=== PATIENT | female | born 1980 | race Caucasian/White ===

== ENCOUNTER → 2020-09-24 13:30 | Outpatient (CLI) | payer OTHER, SELFPAY ==
[2020-09-11 13:37] VITALS: BMI 40.2
--- NOTE | 2020-09-24 13:32 | BI_ITS ---
MAMMOGRAPHY - BILATERAL SCREENING REASON FOR EXAM: Female, 40 years old. Routine annual screening examination. PERTINENT HISTORY: TECHNIQUE: Digital bilateral breast ajith (3D mammographic acquisition) in the CC and MLO projections. 2-D mediolateral oblique (MLO) and craniocaudad (CC) views of both breasts were obtained. CAD: Full Field Digital Mammography with Computer Added Detection was performed. COMPARISON: None, baseline screening. FINDINGS: Breast Composition: Heterogeneously dense There are no dominant masses or suspicious calcifications. No other significant abnormalities are identified. BI/SCRN MAMM (CAD)W/AJITH BILAT IMPRESSION: Stable bilateral screening mammogram. Yearly follow-up mammogram recommended. (A) ASSESSMENT CATEGORY: BIRADS Category 1: Negative. A letter regarding these results will be sent to the patient by the facility within 30 days. Approximately 10% of breast cancers are not detected by mammography. A normal mammogram should not delay biopsy of a clinically suspicious abnormality. [id number] Electronically Signed: Arie Miller DO at 16:28 EDT Tel , Service support ,
== END ==
PROVIDERS: Referring Provider Nurse Practitioner Family; Visit Provider Nurse Practitioner Family
DX: Z12.31 Encounter for screening mammogram for malignant neoplasm of breast (principal)
CPT/HCPCS: 77063; 77067

== ENCOUNTER 2020-09-26 15:14 | Observation (INO) | payer OTHER, SELFPAY ==
[2020-06-14 16:10] VITALS: BMI 40.2
[2020-09-11 13:37] VITALS: BMI 40.2
--- NOTE | 2020-09-25 21:37 | PCM.HP.BLA ---
History and Physical Date of Admission: 09/26/20 HISTORY OF PRESENT ILLNESS 40 year old woman presents with complaints of bilateral macromastia as well as associated painful symptomatology of neck pain, thoracic back pain, bilateral shoulder pain from shoulder grooving from the weight of her breasts on her bra straps, and inframammary intertrigo for which she uses powders for relief. She denies any trauma to her breasts. Denies any nipple discharge. She has been seeing a Chiropractor for her neck and thoracic back pain without much relief in her painful symptomatology. She has received medical approval for the breast reduction surgery from her insurance company. The surgery is scheduled for September 26, 2020. She had a mammogram on 09/24/20. It showed breast Composition is heterogeneously dense. There are no dominant masses or suspicious calcifications. No other significant abnormalities are identified. PAST MEDICAL HISTORY Back problem Chronic neck pain Chronic thoracic back pain Headache Intertrigo Macromastia Shoulder pain PAST SURGICAL HISTORY delivery ALLERGIES No Known Allergies MEDICATIONS multivitamin FAMILY HISTORY Other - Cancer SOCIAL HISTORY Smoking Status: Never smoker alcohol intake: never substance use type: does not use REVIEW OF SYSTEMS General - Denies fever, weight loss and fatigue. Eyes - Denies cataracts and glaucoma. ENT - Denies nasal congestion and sore throat. Endocrine - Denies excessive thirst and urination. Skin - Denies suspicious lesions and skin cancer. Has inframammary intertrigo for which she uses powders for relief. Musculoskeletal - Denies joint pain, weakness of muscles and joints, and arthritis. Has joint stiffness and neck pain and back pain. Her neck and back pain involve cervical and thoracic area. Has bilateral shoulder pain from shoulder grooving from the weight of her breasts on her bra straps. Neuro - Has headaches. Cardiovascular - Denies chest pain, fatigue, and shortness of breath with exertion. Psych - Denies anxiety and depression. Respiratory - Denies shortness of breath and chronic cough. Gastrointestinal - Denies nausea, vomiting, diarrhea, and constipation. Hematologic - Denies abnormal bruising and bleeding. Genitourinary - Denies hematuria and urinary frequency. PHYSICAL EXAMINATION General - Alert and oriented. Patient's bra size is 42 DD. HEENT - PERRL. EOMI. Throat is clear. Neck - Supple. No bony tenderness. There is some pericervical soft tissue tenderness. Lungs- Clear to auscultation. Heart - Regular rate and rhythm. Breasts - Patient has bilateral macromastia. No breast masses palpable. No axillary adenopathy noted. Left breast is slightly larger than her right breast. Distance from midclavicular line on the left to the nipple is 41 cm and from the nipple to the inframammary fold is 18 cm. Distance from midclavicular line on the right to the nipple is 39 cm and from nipple to the inframammary fold is 19 cm. Nipple areolar complex diameter is 8 cm bilaterally. No active inframammary intertrigo noted at this time. Abdomen - Soft and non distended. Back - No bony tenderness noted. There is perivertebral soft tissue tenderness in the upper thoracic area. Extremities - FROM. No axillary adenopathy. Radial pulses are palpable. There is some bilateral shoulder tenderness with shoulder grooving from the weight of her breasts on her bra straps. Neuro - CN II-XII grossly intact. Psych - Normal and mood and affect. ASSESSMENT 1. Bilateral macromastia. 2. Neck pain. 3. Thoracic back pain. 4. Bilateral shoulder pain from shoulder grooving from the weight of the breasts on her bra straps. 5. Inframammary intertrigo. PLAN Discussed with the patient the procedure of breast reduction mammoplasty. I feel this procedure would be beneficial in this patient as it would help relieve her painful symptomatology. Patient recently had a mammogram on 09/24/20. It showed breast Composition is heterogeneously dense. There are no dominant masses or suspicious calcifications. No other significant abnormalities are identified. Postoperatively, she would get a breast reduction baseline mammogram at some point. I would remove approximately 750 g of breast tissue per side. We will send the tissue to pathology for analysis to rule out carcinoma. Discussed with patient the extent of scarring for this procedure. The biggest risk for wound healing problems is the T-zone area. Usually wound care and sometimes antibiotics are necessary for healing in this area. She would have drains in for a few days depending on the amount of tissue that is removed. She will be on antibiotics until the drains are removed. In general, the final breast size will range from a full C to a low D cup. She voices understanding. Surgery will be done under general anesthesia with a surgical observation overnight stay in the hospital. A letter to her insurance carrier was sent and we have received medical approval for the surgery that is scheduled for September 26, 2020. Patient was informed of the risks and complications of the procedure including alternatives to surgery. These were discussed with her personally. She voices understanding and wishes to proceed. Some of the risks and complications were included in a form from the [employer]. She had last minute questions that were answered personally and to her satisfaction. We discussed the current risks associated with COVID-19. While it is understood that there is a community spread of COVID-19, the risk of verito COVID-19 while at [facility] ([facility]) is very low; however, the risk cannot be completely mitigated because of the community spread of the disease. We discussed in detail the risk of exposure to and/or potential harm posed by the COVID-19 virus with having a surgery/procedure at this time versus the risk of delaying the surgery/procedure. It is not possible to know either the risk of delaying the surgery or procedure or chance of getting an infection with perfect accuracy, but a joint decision was made to proceed at this time with the scheduled surgery/procedure as indicated on the consent form. Patient was notified that we will need to comply with any screening or testing [facility] wishes to perform or that surgery may be delayed for any positive results.
[2020-09-26] VITALS (14 sets, daily range): BP systolic 95–141; BP diastolic 48–81; PULSE 73–102; RESP 16–18; TEMP 36.2–37.3; O2SAT 96–100; BMI 43.5
--- NOTE | 2020-09-26 | BR_PTH ---
PATIENT: HAMLET SHEFFIELD LOC: [facility]3 U#:[id number] AGE/SX: 40/F [place] [facility] [place]/26/[address]: Dr. Faboi Mcclelland MD : 1980 BED: 1 DIS: 09/27/2020 SPEC #: [id number] RECD: 09/26/20 14:41 STATUS: KARAN SANGITA #: [id number] ROBINA: 09/26/20 00:[address]: Fabio Mcclelland DEPT: SURGICAL PATHOLOGY RECD BY: Gavin Petersen ENTERED: 09/27/20 08:16 SP TYPE: MAMOPLASTY OTHR DR: Amira Primary Care Phys Tissues: A - Right breast, NOS B - Left breast, NOS Procedures: Surgery Specimen Level IV HEADER OPERATION: ERAS, breast reduction mammoplasty PRE-OP DIAGNOSIS: Bilateral macromastia, neck pain, thoracic back pain, bilateral shoulder pain, inframammary intertrigo TISSUE SUBMITTED: A ? Right breast tissue, B ? Left breast tissue MICROSCOPIC DIAGNOSIS A. Right breast tissue, breast reduction mammoplasty: Fragments of benign breast tissue (1076 gm). Skin, no pathologic diagnosis. B. Left breast tissue, breast reduction mammoplasty: Fragments of benign breast tissue (1445 gm). Skin, no pathologic diagnosis. RAPHAEL:rosette 09/28/2020 MICROSCOPIC DESCRIPTION Slides are reviewed. GROSS DESCRIPTION A - Received in fixative is one container labeled with the patient's name and designated right breast tissue. The specimen consists of multiple fragments of fibroadipose tissue with a few of the pieces showing sparrow-white skin and detached fragments of sparrow-white skin measuring in aggregate 28 x 27 x 7 cm and weighing 1076 gm. Sections reveal sparrow-yellow adipose cut surfaces mixed with scant fibrous areas. No mass lesion is identified. Detail Maker And Fitter sections are submitted in six cassettes. Cassette 6 also contains the skin piece. B - Received in fixative is one container labeled with the patient's name and designated left breast tissue. The specimen consists of multiple fragments of fibroadipose tissue with a few of the pieces showing sparrow-white skin and detached fragments of sparrow-white skin measuring in aggregate 30 x 28 x 8 cm and weighing 1445 gm. Sections reveal sparrow-yellow adipose cut surfaces mixed with scant fibrous areas. No mass lesion is identified. Detail Maker And Fitter sections are submitted in six cassettes. Cassette 6 also contains the skin piece. / RAPHAEL:rosette 09/27/20 TC:5 CPT: 15161 x2
[2020-09-26] MEDS: Lactated Ringers 1,000 ML 40 ML IV (07:35)
[2020-09-26 07:45] LABS: Internal QC Validated? YES +Cl - CLEAR BKGD; Pregnancy, Urine Negative Negative
[2020-09-26] MEDS: Gabapentin 600 MG Tablet PO (07:49)
[2020-09-26] MEDS: Acetaminophen 500 MG Tablet 1000 MG PO ×2 (07:49→19:43)
[2020-09-26] MEDS: Scopolamine 1mg/72hr Patch 1 PATCH TD (07:50)
[2020-09-26 07:57] LABS: Magnesium 2.1 mg/dL (1.6-2.6)
[2020-09-26] MEDS: Cefazolin 2 GM in 0.9% Normal Saline 100 ML IV (09:10)
[2020-09-26] MEDS: Lidocaine 1% /Epi 1:100 (20ml) 20 ML Vial (09:45)
[2020-09-26] MEDS: Lactated Ringers 1,000 ML 60 ML IV ×4 (09:46→19:45)
--- NOTE | 2020-09-26 14:55 | OP.PCM_ITS ---
Problems Associated Problem List Diagnoses (1) Macromastia: (2) Chronic neck pain: (3) Chronic thoracic back pain: (4) Shoulder pain: (5) Intertrigo: Report of Operation Date of Procedure: 09/26/20 Pre-Operative Diagnosis: 1. Bilateral macromastia. 2. Neck pain. 3. Thoracic back pain. 4. Bilateral shoulder pain from shoulder grooving from the weight of the breasts on her bra straps. 5. Inframammary intertrigo. Post-Operative Diagnosis: Same. Surgery/Procedure Performed:: Bilateral breast reduction mammaplasty. Description of Surgical Findings:: 40 year old woman presents with complaints of bilateral macromastia as well as associated painful symptomatology of neck pain, thoracic back pain, bilateral shoulder pain from shoulder grooving from the weight of her breasts on her bra straps, and inframammary intertrigo for which she uses powders for relief. She denies any trauma to her breasts. Denies any nipple discharge. She has been seeing a Chiropractor for her neck and thoracic back pain without much relief in her painful symptomatology. She has received medical approval for the breast reduction surgery from her insurance company. The surgery is scheduled for September 26, 2020. She had a mammogram on 09/24/20. It showed breast Composition is heterogeneously dense. There are no dominant masses or suspicious calcifications. No other significant abnormalities are identified. Patient was informed of the risks and complications of the procedure including alternatives to surgery. These were discussed with the patient personally. Patient voices understanding and wishes to proceed. Some of the risks and complications were included in a form from the [employer] [place] [employer]. IV Fluids - 3000 ml. Urine Output - 1100 ml. Tissue removed from the left breast - 1402 grams. Tissue removed from the right breast - 1038 grams. I used AmnioFix Placental Connective Tissue Graft, (2 x 12 cm in each breast at [facility]). Catalog Number - [id number]. Lot Number - [id number]. Expiration - April 23, 2025, (left breast Tzone). Catalog Number - [id number]. Lot Number - [id number]. Expiration - April 23, 2025, (right breast Tzone). I used Preeti absorbable hemostat, (I used 4 vials, 2 in each breast). Reference Number - [id number]. Lot Number - [id number]. Expiration - June 20, 2025. Surgeon: Fabio Mcclelland contracts attorney: Ladarius Coleman contracts attorney: Dimitri Bean Type of Anesthesia: General Specimen's removed: 1. Left breast tissue to Pathology. 2. Right breast tissue to Pathology. Drains: Juan x2 (one in each breast). Estimated Blood Loss (mL): 250. Fluids Replaced: 4100 ml (IV Fluids 3000 ml, Urine Output 1100 ml). Description of Procedure: In the preop area, the patient was placed in the sitting position and preoperative markings were made. The sternum midline was marked down to the umbilicus. The inframammary folds were marked bilaterally. The midclavicular line was then marked down to the nipple, then from the nipple to the inframammary fold. The inframammary fold was then superimposed on the midclavicular line and I made a point 1 cm below that to be the new position of the nipple-areolar complex. 7 cm lines were then drawn divergent from that point to encompass the nipple-areolar complex. The distance between the divergent lines was 10 cm. The patient was then placed in the supine position and taken to the operating room and placed under general anesthesia and her breasts were prepped and draped in usual fashion. Ioban draping was also used. SCDs were placed for DVT prophylaxis. Perioperative antibiotics were given intravenously. A Hutchinson catheter was also placed. I then lauren straight lines down from the lines drawn divergent around the nipple-areolar complex down to the inframammary fold. The width of the pedicle is 10 cm. I then used a 45 mm circular template for a new size of the nipple-areolar complex. The central markings were infiltrated with Xylocaine and epinephrine. The central skin was then deepithelialized. I started on the left side first and then went to the right side. I then mobilized medial and lateral breast flaps at the level of Joan's fascia down to about 1-2 cm from the chest wall. This was met in the midline of the breast with dissection at the level of Joan's fascia down to about 1-2 cm from the chest wall. Once the central breast mound pedicle was from the skin envelope, the reduction was then begun. Most of the tissue was removed from the superior aspect of the breast and the lateral aspect of the breast. I then sutured the leading edge of the medial and lateral breast flaps to the midline of the inframammary fold with 2-0 Vicryl suture. The vertical incision was approximated using surgical clips. The excess tissue from the medial and lateral breast flaps were excised and the horizontal incision was approximated using surgical clips. The patient was then placed in a sitting position. Using a vertical limb length of 5 cm, I lauren the new position of the new nipple-areolar complexes on both breasts. They were in good position on the central aspect of the breast mound. Good symmetry was noted between the left breast and the right breast. Good shape and contour and projection was noted and appeared clinically to be a full C cup. The patient was then placed back in the supine position and the surgical clips were removed. The breast wounds were then irrigated with Irrisept 0.05% Chlorhexidine solution which was followed by saline irrigation. Hemostasis was obtained using electrocautery. The tissue removed from the left breast was 1402 grams. The tissue removed from the right breast was 1038 grams. The tissue that was removed from the breasts was sent to Pathology for analysis to rule out carcinoma. After hemostasis was obtained using electrocautery, I then sprayed Preeti absorbable hemostat into both breast wounds. I used two vials for each side. I then placed a size 15 Juan drain into each breast wound to be brought through the lateral aspect of the horizontal incision. I then closed the breast wounds by first approximating the leading edge of the medial and lateral breast flaps to the midline of the inframammary fold with 2-0 Vicryl suture. I then placed AmnioFix placental connective tissue graft into both wounds at the level of the Tzone to help with the healing process. I used 2 x 12 cm for each Tzone. The deep dermis and subcutaneous tissue of the vertical incision and the horizontal incisions were approximated using 3-0 Monocryl interrupted sutures. The horizontal incision was then approximated using 4-0 V-Loc unidirectional barbed running subcuticular suture. I also placed a few 4-0 Prolene vertical mattress interrupted sutures at the level of the Tzone. The vertical incision was then closed on the skin with 4-0 Prolene interrupted sutures. With a vertical limb length of 5 cm, I lauren a circular incision where the nipple-areolar complex would be brought through this keyhole incision. Incisions were made and the nipple areolar complex was brought through the keyhole incision. The nipple-areolar complex was secured to the breast skin using 3-0 Monocryl interrupted sutures for deep dermis and subcutaneous tissue. The skin was approximated using 4-0 Prolene simple interrupted sutures. This was then covered with Histoacryl skin tissue adhesive. I sutured the drains to the skin using 3-0 nylon suture. At the end of the procedure, the breasts were soft and symmetrical with no evidence of vascular compromise. No evidence of hematomas were noted. The nipples were viable. I then dressed the breasts with a Kerlix gauze and a compression ridge wrap. Then patient tolerated the procedure well and will be sent to the recovery room in satisfactory condition. She will be admitted for surgical observation overnight stay. She will go home tomorrow once she is tolerating oral pain medication. I will remove the drains in a few days. She will keep her head elevated during the initial postoperative period. She will be maintained on a lifting restriction and keep her head elevated during the initial postoperative period. Post-discharge, she may get a compression sports bra as well. She will have the Hutchinson removed in the morning. She will be sent home on antibiotics and pain medicine. Sutures will be removed in 1-2 weeks. Grafts/Implants Used: AmnioFix Placental Connective Tissue Graft x2. Preeti. Complications None. Admit VTE Documentation VTE Present on Admission: No VTE Mechan Device Prophylaxis: SCD's VTE Pharm Prophylaxis ordered?: Yes Addendum Addendum: Surgery Charges CPT - 66114 ICD-10 - N62, M54.2, M54.6, M25.519, L30.4 [id number] N62, M54.2, M54.6, M25.519, L30.4
[2020-09-26] MEDS: Gabapentin 100 MG Capsule 200 MG PO (19:42)
[2020-09-26] MEDS: Docusate Sodium 100 MG Capsule PO (21:04)
[2020-09-26] MEDS: Cefazolin 1 GM/50 ML BAG IV (21:05)
[2020-09-27] MEDS: Acetaminophen 500 MG Tablet 1000 MG PO ×3 (00:24→12:00)
[2020-09-27 03:53] VITALS: BP 132/64; PULSE 83; RESP 18; TEMP 36.6; O2SAT 95
[2020-09-27] MEDS: Cefazolin 1 GM/50 ML BAG IV ×2 (06:09→12:56)
[2020-09-27 06:32] LABS: Hematocrit 31.9 % (37-47); Mean Corp Hgb Conc 31.3 g/dL (32-36); Mean Corpuscular Hgb 29.7 pg (27.0-32.0); Mean Corpuscular Volume 94.7 fL (81-99); Mean Platelet Vol. 8.2 fl (6.2-12.0); Platelet Count 383 K/mm3 (150-450); RBC Distribution Width CV 13.1 % (11.6-14.6); RBC Distribution Width SD 45.1 fl (35.1-43.9); Red Blood Count 3.37 M/mm3 (4.2-5.4); White Blood Count 13.5 K/mm3 (4.4-11.0)
[2020-09-27 07:01] LABS: Anion Gap 5 (5-15); BUN 5 mg/dL (7-18); BUN/Creat Ratio 7.9 RATIO (10-20); Calcium,Total 7.8 mg/dL (8.5-10.1); Chloride 104 mmol/L (98-107); Creatinine, Serum 0.63 mg/dL (0.55-1.02); EST Glomerular Filtration Rate 110 mL/min (>60); Est Glom Filt Rate - Afr Amer 133 mL/min (>60); Estimated Creatinine Clearance 89.57 ml/min; Glucose 100 mg/dL (74-106); Potassium 3.8 mmol/L (3.5-5.1); Prealbumin 17.9 mg/dL (20.0-40.0); Sodium Level 139 mmol/L (136-145)
[2020-09-27 07:26] VITALS: O2SAT 96
[2020-09-27 08:23] VITALS: BP 110/55; PULSE 82; RESP 16; TEMP 37; O2SAT 98
[2020-09-27] MEDS: Docusate Sodium 100 MG Capsule PO (08:35)
[2020-09-27] MEDS: Gabapentin 100 MG Capsule 200 MG PO ×2 (08:35→12:01)
[2020-09-27] MEDS: Ensure Surgery 237 ML LIQUID PO ×2 (08:35→12:00)
[2020-09-27] MEDS: Enoxaparin 40 MG/0.4 ML Syringe SC (08:35)
[2020-09-27] MEDS: Multivitamins,Therapeutic Tablet 1 TABLET PO (08:35)
[2020-09-27] MEDS: oxyCODONE 5 MG Tablet PO (09:29)
[2020-09-27 11:57] VITALS: BP 130/69; PULSE 104; RESP 18; TEMP 37; O2SAT 95
--- NOTE | 2020-09-27 13:05 | PCM.PN.SRG ---
Subjective Subjective Postop #1 Patient is resting comfortably. Hutchinson out. Voiding without difficulty. Steady on her feet with ambulation. Tolerating po analgesia. Objective Data Objective Data Vital Signs: Vital Signs Temp Pulse Resp BP Pulse Ox 98.6 F 104 H 18 130/69 H 95 09/27/20 11:57 09/27/20 11:57 09/27/20 11:57 09/27/20 11:57 09/27/20 11:57 Drainage 80 ml yesterday, 90 ml today. Oxygen Flow Rate (L/min) 2 Oxygen Delivery Method Room Air Weight: 230 lb 9.656 oz Body Mass Index (BMI) 43.5 Intake & Output: Intake and Output for Last 24 Hours 09/25/20 09/26/20 09/27/20 23:59 23:59 23:59 Intake Total 4266.5 / 4266.5 2550 / 2550 Output Total 1280 / 1280 1965 / 1965 Balance 2986.5 / 2986.5 585 / 585 Lab / Micro Data Attestation: I reviewed the patient's lab results. Result Diagrams: 09/27/20 05:56 09/27/20 05:56 Labs: Laboratory Results - last 24 hr 09/27/20 05:56: WBC 13.5 H, RBC 3.37 L, Hgb 10.0 L, Hct 31.9 L, MCV 94.7, MCH 29.7, MCHC 31.3 L, RDW Std Deviation 45.1 H, RDW Coeff of Mandie 13.1, Plt Count 383, MPV 8.2 09/27/20 05:56: Sodium 139, Potassium 3.8, Chloride 104, Carbon Dioxide 30.0, Anion Gap 5, BUN 5 L, Creatinine 0.63, Estim Creat Clear Calc 89.57, Est GFR (MDRD) Af Amer 133, Est GFR (MDRD) Non-Af 110, BUN/Creatinine Ratio 7.9 L, Glucose 100, Calcium 7.8 L, Prealbumin 17.9 L Micro: Microbiology 09/24/20 14:41 Interface Orders SARS-CoV-2 Antigen (Rapid) - Final Physical Exam Narrative General - Alert and Oriented HEENT - PERRL. EOMI. Breasts - Incisions are dry and intact. Breasts are soft and symmetrical. Mild bruising on skin flaps noted. Will observe. No clinical evidence of hematoma. Nipples are viable. Abdomen - Soft and nondistended. Extremities - FROM. No axillary adenopathy. Radial pulses are palpable. Neuro - CN II-XII grossly intact. Psych - Normal mood and affect. Assessment & Plan Assessment/Plan (1) Macromastia: (2) Chronic neck pain: (3) Chronic thoracic back pain: (4) Shoulder pain: (5) Intertrigo: PLAN: Breasts are soft and symmetrical. Incisions are dry and intact. Mild bruising on the skin flaps. Will observe. No clinical evidence of hematoma. Nipples are viable. Tolerating po analgesia. Hutchinson removed. Voiding without difficulty. She is steady on her feet with ambulation. Prealbumin was 17.9. Encourage nutritional supplementation with protein to help the healing process. Discharge home today. Continue compression bra and lifting restriction. Keep head elevated. Will remove drains in the office. Wrote script for Doxycycline until the drains are removed. Wrote script for Percocet for pain (40 tabs). Wrote script for Phenergan for nausea (30 tabs) and a refill. Followup office Thursday10/01/20 for drain removal.
--- NOTE | 2020-09-27 13:55 | PCM.DC ---
Discharge Instructions Diet Discharge Diet: No restrictions and - (encourage nutritonal supplementation with protein to help the healing process.) Activity Discharge Activity: May Not Drive, May Not Shower (until the drains are removed. ) and - (keep head elevated. continue lifting restriction. continue breast compression.) May shower in (days): 4 (after the drains are removed.) May resume sexual activity in: 10-14 days Weight Bearing Status: Weight bearing as tolerated Lifting Restrictions: 20 lbs. Keep extremity elevated above heart level: - (elevate head.) Dressing / Incision Call your doctor if your incision/area has: Continuous Slow Oozing, Sudden Increased Bleeding, Increased Pain/ Swelling, Increased Redness, Foul Smelling Discharge, Swelling at the incision site and - (black nipples) Call your doctor if you observe: Fever of 101 or Higher, Coldness, Increased Pain, Shortness of breath, Chest pain, Calf discomfort and Uncontrolled pain Suture Line Care: - (dry dressings daily.) Change Dressing in: 1 day (dry dressings daily or every other day) Cleanse incision/area with: - (may get incisions wet in the shower after the drains are removed.) Drain: Suction (sharlene drains x2 to bulb suction. Empty and record output daily.) Follow Up Care Please Follow Up With: Fabio Mcclelland MD When: thursday10/01/20. call [phone] for appt. Test Results: Test results from this visit will be discussed in further detail at your follow-up appointment, if applicable. Discharge Plan Admission Admit Date/Time: 09/26/20 15:14 Primary Reason for Your Visit: bilateral macromastia - reduction surgery Attending Provider: Fabio Mcclelland Primary Care Provider: Care Physician,Amira Primary Discharge Orders/Prescriptions Prescriptions: New doxycycline hyclate 100 mg capsule 100 mg PO BID Qty: 10 RF: 0 oxycodone-acetaminophen [Percocet] 5-325 mg tablet 1 tab PO Q4H PRN (Reason: pain (scale score 7-10)) 7 Days Qty: 40 RF: 0 promethazine 25 mg tablet 25 mg PO Q6H PRN (Reason: nausea and vomiting) Qty: 30 RF: 1 Continued multivitamin Tablet 1 tablet PO DAILY RF: 0 Referrals / Follow Up: Care Physician,Amira Primary [Primary Care Provider] - Disposition Disposition (needs filled in before D/C Order can be placed): Home, Self Care
== END 2020-09-27 15:17 | disposition home or self-care (01) ==
LOC: SDC 15:24 → MS3 09-27 10:11
PROVIDERS: Anesthesiology; Admitting Provider Surgery; Referring Provider Surgery; Visit Provider Surgery
PROC: 0H0U0ZZ Alteration of Left Breast, Open Approach (ICD-10-PCS; CPT 19318; principal; 2020-09-26 08:45)
DX: N62 Hypertrophy of breast (principal); M25.512 Pain in left shoulder; M25.511 Pain in right shoulder; M54.6 Pain in thoracic spine; M54.2 Cervicalgia; L30.4 Erythema intertrigo
CPT/HCPCS: 00402; 19318; 36415; 80048; 81025; 83735; 84134; 85027; 87426; 88305; 96365; 96366; 96372; 99218; 99251; C9803; J7050; J7120; G0378; G0463; J2405; Q9968

== ENCOUNTER → 2020-10-17 | Outpatient (CLI) | payer OTHER, SELFPAY | END | disposition home or self-care (01) | LOC: LABSPEC 14:36 | PROVIDERS: Referring Provider Nurse Practitioner Family; Visit Provider Nurse Practitioner Family | DX: T81.89XA Other complications of procedures, not elsewhere classified, initial encounter (principal); N62 Hypertrophy of breast; Z98.890 Other specified postprocedural states | CPT/HCPCS: 87070; 87075; 87077; 87186; 87205 ==

== ENCOUNTER → 2020-12-18 | Outpatient (CLI) | payer OTHER, SELFPAY | END | disposition home or self-care (01) | LOC: LABSPEC 10:50 | PROVIDERS: Referring Provider Nurse Practitioner Family; Visit Provider Nurse Practitioner Family | DX: T81.89XA Other complications of procedures, not elsewhere classified, initial encounter (principal) | CPT/HCPCS: 87070; 87075; 87077; 87186; 87205 ==

== ENCOUNTER → 2021-01-29 | Outpatient (CLI) | payer OTHER, SELFPAY | END | disposition home or self-care (01) | LOC: LABSPEC 10:44 | PROVIDERS: Visit Provider Nurse Practitioner Family | DX: L98.492 Non-pressure chronic ulcer of skin of other sites with fat layer exposed (principal); N62 Hypertrophy of breast; M54.2 Cervicalgia; G89.29 Other chronic pain; M54.6 Pain in thoracic spine; L30.4 Erythema intertrigo; M25.519 Pain in unspecified shoulder | CPT/HCPCS: 87070; 87075; 87077; 87186; 87205 ==